=== PATIENT | female | born 1990 ===

== ENCOUNTER 2021-09-27 02:17 | Emergency (ER) | payer SELFPAY ==
[~2021-09-27] VITALS: Ht 170.2 cm; Wt 50.0 kg
[2021-09-27] MEDS ORDERED: LEVETIRACETAM 1000MG PREMIX 100 ML IV ONE (02:45)
[2021-09-27 03:18] LABS: BASOPHILS % 0.4 % (0.0-2.0); EOSINOPHILS % 1.1 % (0.0-5.0); HEMATOCRIT. 42.9 % (36.0-48.0); HEMOGLOBIN. 14.5 g/dL (12.0-16.0); LYMPHOCYTES % 16.8 % (20.0-50.0); MEAN CORPUSCULAR HEMOGLOBIN 29.7 pg (28.0-32.0); MEAN CORPUSCULAR VOLUME 88.2 fL (81.0-99.0); MEAN PLATELET VOLUME 9.1 fl (7.4-10.4); MONOCYTES % 5.8 % (2.0-8.0); NEUTROPHILS % 75.9 % (40.0-76.0); PLATELET 200 x1000/uL (130-400); RED BLOOD CELL COUNT 4.87 mill/uL (4.2-5.4); RED CELL DISTRIBUTION WIDTH 14.5 % (11.6-14.6)
[2021-09-27 03:23] LABS: HCG SCREEN NEGATIVE
[2021-09-27 03:40] LABS: CHLORIDE 108 mEq/L (98-107); ETHANOL BLOOD < 10 mg/dL
[2021-09-27 04:07] LABS: CLARITY URINE TURBID (CLEAR); COLOR URINE RED (YELLOW)
[2021-09-27 04:08] LABS: KETONES URINE 1+ (NEGATIVE); PROTEIN URINE 3+ (NEGATIVE)
[2021-09-27 04:09] LABS: OCCULT BLOOD URINE 3+ (NEGATIVE)
[2021-09-27 04:13] LABS: NITRITE URINE TRACE (NEGATIVE)
[2021-09-27 04:14] LABS: LEUKOCYTE ESTERASE URINE 1+ (NEGATIVE); UROBILINOGEN URINE 0.2 E.U./dL (0.2-1.0)
[2021-09-27 05:05] VITALS: BP 95/44
== END 2021-09-27 05:15 | disposition home or self-care (01) ==
LOC: ER 02:17
DX: R56.9 Unspecified convulsions (principal); S00.511A Abrasion of lip, initial encounter; Z98.890 Other specified postprocedural states; W18.11XA Fall from or off toilet without subsequent striking against object, initial encounter; Y93.89 Activity, other specified; Y92.89 Other specified places as the place of occurrence of the external cause; Y99.8 Other external cause status
CPT/HCPCS: 36415; 80053; 80320; 81003; 82962; 84703; 85025; 93005; 96365; 96366; 99284; J1953; G0480